=== PATIENT | male | born 1935 | race Two or more races ===

== ENCOUNTER 2016-07-21 04:52 | Emergency (ER) | payer MEDICARE, OTHER ==
--- NOTE | 2016-07-21 04:55 | ED Physician Chart ---
Chief Complaint/HPI - Patient Information Date Seen:: 07/21/16 Time Seen:: 04:55 Chief Complaint:: chest pain History of Present Illness:: 81-year-old male history of MA and CABG, complains of acute, nonradiating, moderate, 6 out of 10, pressure-like chest pain since about 3:30 this morning. Says he was using his elliptical senior trainer yesterday as he normally does and thinks this may have set off the chest pain. Took 162 mg of aspirin prior to arrival which seems to have slightly improve the pain. Allergies:: Allergies Allergy/AdvReac Type Severity Reaction Status Date / Time MDX Penicillin [Penicillin] Allergy Verified 07/16/14 02:44 Historian:: Patient Review:: Nurse's Note Reviewed Review of Systems - Review of Systems Other: Complete system review otherwise unremarkable except as noted in HPI. Past Medical History - Past Medical History Past Medical History: HTN, CAD Family History: None Social History: Non Smoker, No Alcohol, No Drug Use, Surgical History: None Psychiatricy History: None Medication: Reviewed Family Medical History - Family Member Father Hx Family Hypertension: Yes Physical Exam - Physical Examination Other:: INITIAL VITAL SIGNS: Reviewed by me GENERAL: Alert and interactive. No acute distress HEAD: Head is normocephalic and atraumatic EYES: EOMI. . No scleral icterus. No conjunctival injection ENT: Moist mucous membranes. NECK: Supple. No masses. Full range of motion RESPIRATORY: No tachypnea. Clear breath sounds bilaterally. No wheezing, rales, or rhonchi CV: Regular rate and rhythm. No murmurs, rubs, or gallops ABDOMEN: Soft, non-distended, non-tender. No guarding. No rebound. No masses. EXTREMITIES: No deformity. No cyanosis. No edema. SKIN: Warm and dry. No obvious rashes. NEUROLOGIC: Alert and oriented. Face is symmetric. Speech is normal. Moves all extremities equally. Motor and sensory distally intact. Labs/Radiology/EKG Results - Lab Results Results: Lab Results 07/21/16 07/21/16 07/21/16 Range/Units 05:13 05:13 05:13 WBC 5.9 (4.8-10.8) Th/cmm RBC 3.74 L (3.80-5.80) Mil/cmm Hgb 12.2 L (12.6-17.4) gm/dL Hct 36.1 L (39.0-49.0) % MCV 96.6 (80-99) fl MCH 32.7 H (27.0-31.0) pg MCHC Differential 33.9 (28.0-36.0) pg RDW 12.4 (11.5-20.0) % Plt Count 164 (150-400) Th/cmm MPV 8.8 fl Neutrophils % 56.0 (40.0-80.0) % Lymphocytes % 28.4 (20.0-50.0) % Monocytes % 8.8 (2.0-10.0) % Eosinophils % 6.8 H (0.0-5.0) % Basophils % 0.0 (0.0-2.0) % PT 9.3 L (9.5-11.5) SECONDS INR 0.90 (0.5-1.4) Sodium 137 (136-145) mEq/L Potassium 3.6 (3.5-5.1) mEq/L Chloride 107 (98-107) mEq/L Carbon Dioxide 23.0 (21.0-31.0) mEq/L Anion Gap 10.6 (7.0-16.0) BUN 28 H (7-25) mg/dL Creatinine 1.8 H (0.7-1.3) mg/dL Est GFR ( Amer) TNP Est GFR (Non-Af Amer) TNP BUN/Creatinine Ratio 15.6 Glucose 119 H (70-105) mg/dL Calcium 9.6 (8.6-10.3) mg/dL Total Bilirubin 0.7 (0.3-1.0) mg/dL AST 35 (13-39) U/L ALT 31 (7-52) U/L Alkaline Phosphatase 58 (34-104) U/L Creatine Kinase 243 H (30-223) U/L CK-MB (CK-2) 2.6 (0.6-6.3) ng/mL Troponin I (0.01-0.05) ng/mL B-Natriuretic Peptide (5.0-100.0) pg/mL Total Protein 6.9 (6.0-8.3) gm/dL Albumin 3.9 L (4.2-5.5) gm/dL Globulin 3.0 gm/dL Albumin/Globulin Ratio 1.3 (1.0-1.8) Triglycerides 117 (<150) mg/dL Cholesterol 163 (<200) mg/dL LDL Cholesterol Direct 95 (75-193) mg/dL HDL Cholesterol 50 (23-92) mg/dL 07/21/16 Range/Units 05:13 WBC (4.8-10.8) Th/cmm RBC (3.80-5.80) Mil/cmm Hgb (12.6-17.4) gm/dL Hct (39.0-49.0) % MCV (80-99) fl MCH (27.0-31.0) pg MCHC Differential (28.0-36.0) pg RDW (11.5-20.0) % Plt Count (150-400) Th/cmm MPV fl Neutrophils % (40.0-80.0) % Lymphocytes % (20.0-50.0) % Monocytes % (2.0-10.0) % Eosinophils % (0.0-5.0) % Basophils % (0.0-2.0) % PT (9.5-11.5) SECONDS INR (0.5-1.4) Sodium (136-145) mEq/L Potassium (3.5-5.1) mEq/L Chloride (98-107) mEq/L Carbon Dioxide (21.0-31.0) mEq/L Anion Gap (7.0-16.0) BUN (7-25) mg/dL Creatinine (0.7-1.3) mg/dL Est GFR ( Amer) Est GFR (Non-Af Amer) BUN/Creatinine Ratio Glucose (70-105) mg/dL Calcium (8.6-10.3) mg/dL Total Bilirubin (0.3-1.0) mg/dL AST (13-39) U/L ALT (7-52) U/L Alkaline Phosphatase (34-104) U/L Creatine Kinase (30-223) U/L CK-MB (CK-2) (0.6-6.3) ng/mL Troponin I 0.02 (0.01-0.05) ng/mL B-Natriuretic Peptide 147.0 H (5.0-100.0) pg/mL Total Protein (6.0-8.3) gm/dL Albumin (4.2-5.5) gm/dL Globulin gm/dL Albumin/Globulin Ratio (1.0-1.8) Triglycerides (<150) mg/dL Cholesterol (<200) mg/dL LDL Cholesterol Direct (75-193) mg/dL HDL Cholesterol (23-92) mg/dL - EKG Interpretations Comments:: 12-lead EKG Interpretation by Alyssa Michaels MD: Sinus bradycardia with ventricular rate of 51 beats per minute Normal axis Prolonged IA interval No acute ST or T wave changes. No obvious STEMI ED Septic Shock - . Is Septic Shock (SBP<90, OR Lactate>4 mmol\L) present?: No Reassessment (Disposition) - Reassessment Reassessment:: Patient took aspirin prior to arrival to baby aspirins. We also provided 160 mg of aspirin. Chest pain improved. Discussed all findings with patient. At this point patient went to be discharged to follow-up with his primary care physician. We will discharge patient home. Gave return to ER precautions. Patient understands and agrees with the plan. Reassessment Condition:: Improved - Diagnosis Diagnosis:: Chest pain Hypertension - Aftercare/Follow up Instructions Aftercare/Follow-Up Instructions:: Counseled pt regarding lab results/diagnosis & need follow up, Refer to Discharge Instructions - Patient Disposition Discharge/Transfer:: Home Time:: 05:20 Condition at Disposition:: Improved ED Discharge Plan - Patient Disposition Admit/Discharge/Transfer: PT DISCHARGED HOME Condition at Disposition: Improved Instructions: Chest Pain Observation Additional Instructions: follow up with your primary medical doctor DESMOND
[2016-07-21] MEDS ORDERED: Aspirin 81mg Chewable Tab PO ONE (04:56)
[2016-07-21] MEDS ORDERED: Aspirin 81mg Chewable Tab ONE (04:58)
[2016-07-21 05:28] LABS: % EOSINOPHILS 6.8 % (0.0-5.0); % LYMPHOCYTES 28.4 % (20.0-50.0); % MONOCYTES 8.8 % (2.0-10.0); HEMATOCRIT 36.1 % (39.0-49.0); HEMOGLOBIN 12.2 gm/dL (12.6-17.4); MEAN CELL VOLUME 96.6 fl (80-99); MEAN CORPUSCULAR HEMOGLOBIN 32.7 pg (27.0-31.0); MEAN CORPUSCULAR HGB CONC 33.9 pg (28.0-36.0); MEAN PLATELET VOLUME 8.8 fl; NEUTROPHILE ABSOLUTE 3.3 Th/cmm (1.8-8.0); PLATELET COUNT 164 Th/cmm (150-400); RED BLOOD COUNT 3.74 Mil/cmm (3.80-5.80); RED CELL DISTRIBUTION WIDTH 12.4 % (11.5-20.0); WHITE BLOOD COUNT 5.9 Th/cmm (4.8-10.8)
[2016-07-21 05:37] LABS: INR 0.9 (0.5-1.4); PROTHROMBIN TIME (TEST) 9.3 SECONDS (9.5-11.5)
[2016-07-21 05:44] LABS: ALB/GLOB RATIO 1.3 (1.0-1.8); ALKALINE PHOSPHATASE 58 U/L (34-104); ANION GAP 10.6 (7.0-16.0); BILIRUBIN,TOTAL 0.7 mg/dL (0.3-1.0); BUN - UREA NITROGEN 28 mg/dL (7-25); BUN/CREATININE RATIO 15.6; CALCIUM SERUM 9.6 mg/dL (8.6-10.3); CHLORIDE 107 mEq/L (98-107); CHOLESTEROL 163 mg/dL (<200); CREATININE - SERUM 1.8 mg/dL (0.7-1.3); GLUCOSE 119 mg/dL (70-105); POTASSIUM SERUM 3.6 mEq/L (3.5-5.1); SGOT 35 U/L (13-39); SGPT/ALT 31 U/L (7-52); SODIUM SERUM 137 mEq/L (136-145); TRIGLYCERIDES 117 mg/dL (<150); TROP I 0.02 ng/mL (0.01-0.05)
[2016-07-21 06:09] LABS: CREATINE KINASE MB 2.6 ng/mL (0.6-6.3)
== END 2016-07-21 06:15 | disposition home or self-care (01) ==
LOC: ER 04:52
DX: R07.89 Other chest pain (principal); I10 Essential (primary) hypertension; I25.10 Atherosclerotic heart disease of native coronary artery without angina pectoris; Z88.0 Allergy status to penicillin
CPT/HCPCS: 36415-UA; 80053-TC; 80061-TC; 82550-TC; 82553; 83880-TC; 84484-TC; 85025-TC; 85610-TC; 93005; Z7610